=== PATIENT | female | born 1965 | race Caucasian/White ===

== ENCOUNTER 2016-08-03 00:09 | Emergency (ER) | payer MEDICAID ==
[~2016-08-03] VITALS: Ht 170.2 cm; Wt 90.7 kg
[~2016-08-03 00:09] MED LIST: CLON0.5T4 PO; LEVO50TA8 PO; LOVOXYL; [UNRECOGNIZED DRUG - OTHER]; celexa; dyazide; lithium; lopid; lovaza; remeron; tegretol; vicodin
--- NOTE | 2016-08-03 00:11 | NUR ---
Patient to ER bed 06 to gown for evaluation. Side rails up. Report given to ART.
[2016-08-03 00:15] VITALS: BP 125/70; PULSE 90; RESP 16; TEMP 98.4; O2SAT 95
--- NOTE | 2016-08-03 00:20 | NUR ---
PT IN BED 6 WITH C/O LEFT FOOT SWELLING , BODY ACHES ,HEARING LOSS,DIZZINESS, X [address] RAPHAEL AWARE.
--- NOTE | 2016-08-03 00:22 | NUR ---
ER at bedside examining patient.
--- NOTE | 2016-08-03 00:40 | NUR ---
Urine specimen collected and sent to Lab. Results to be given to MICAH DIAZ.
[2016-08-03 01:16] LABS: BILIRUBIN,URINE NEGATIVE (NEGATIVE); BLOOD, URINE NEGATIVE (NEGATIVE); CLARITY/URINE CLEAR (CLEAR); COLOR,URINE YELLOW (YELLOW); GLUCOSE,URINE NEGATIVE (NEGATIVE); KETONES,URINE TRACE (NEGATIVE); LEUKOCYTE ESTERASE ,URINE NEGATIVE (NEGATIVE); NITRITE, URINE NEGATIVE (NEGATIVE); PH,URINE 6.5 (5.0-8.0); PROTEIN URINE NEGATIVE (NEGATIVE); UROBILINOGEN,URINE 0.2 (0.2-1.0)
[2016-08-03 01:25] LABS: BASOPHILS # (AUTO) 0.1 K/uL (0.0-0.2); BASOPHILS % (AUTO) 0.8 % (0.0-2.0); EOSINOPHILS # (AUTO) 0.2 K/uL (0.0-0.4); EOSINOPHILS % (AUTO) 3.1 % (0.0-4.0); HEMATOCRIT 44.1 % (36-48); HEMOGLOBIN 14.9 g/dL (12.0-16.0); LYMPHOCYTES # (AUTO) 2.7 K/uL (1.0-5.5); LYMPHOCYTES % (AUTO) 36.6 % (20.5-51.5); MEAN CORPUSCULAR HEMOGLOBIN 33 pg (27-31); MEAN CORPUSCULAR HGB CONC 34 % (32-36); MEAN CORPUSCULAR VOLUME 97 fL (79.0-98.0); MONOCYTES # (AUTO) 0.4 K/uL (0.0-1.0); MONOCYTES % (AUTO) 5.4 % (1.7-9.3); NEUTROPHILS # (AUTO) 4.1 K/uL (1.8-7.7); NEUTROPHILS % (AUTO) 54.1 % (40.0-70.0); PLATELET COUNT (AUTO) 254 K/uL (130-430); RED BLOOD CELL COUNT(AUTO) 4.55 MIL/uL (4.2-6.2); RED CELL DISTRIBUTION WIDTH 12.6 % (9.0-15.0); WHITE BLOOD COUNT (AUTO) 7.5 K/uL (4.8-10.8)
--- NOTE | 2016-08-03 01:30 | NUR ---
Patient resting quietly. No acute distress noted. Vital signs within normal range.
[2016-08-03 01:55] LABS: ALBUMIN 3.5 g/dL (3.4-4.8); CALCIUM 8.9 mg/dL (8.4-11.0); CREATININE 1.13 mg/dL (0.55-1.30); POTASSIUM 3.8 mmol/L (3.5-5.1); TOTAL BILIRUBIN 0.3 mg/dL (0.0-1.0); TOTAL PROTEIN, SERUM 7.6 g/dL (6.4-8.3)
[2016-08-03 02:00] LABS: THYROID STIMULATING HORMONE 2.19 uIu/mL (0.34-4.82)
[2016-08-03 02:25] VITALS: BP 132/78; PULSE 86; RESP 16; TEMP 98.4; O2SAT 95
--- NOTE | 2016-08-03 02:25 | NUR ---
Patient given written and verbal discharge instructions and verbalizes understanding. ER MD discussed with patient the results and treatment provided. Given copies of tests performed in ER. Patient in stable condition. ID arm band removed. Rx of bactrim,cephalexin given. Patient educated on pain management and to follow up with PMD. Pain Scale 0/10. Opportunity for questions provided and answered.
== END 2016-08-03 02:25 | disposition home or self-care (01) ==
LOC: SED 00:09
DX: L03.116 Cellulitis of left lower limb (principal); E11.9 Type 2 diabetes mellitus without complications; F41.9 Anxiety disorder, unspecified; R03.0 Elevated blood-pressure reading, without diagnosis of hypertension; E05.90 Thyrotoxicosis, unspecified without thyrotoxic crisis or storm; F17.200 Nicotine dependence, unspecified, uncomplicated
CPT/HCPCS: 36415; 80053; 81003; 83880; 84443-TC; 85025; 85379; 99284

== ENCOUNTER 2018-09-26 01:20 | Emergency (ER) | payer MEDICAID ==
[~2018-09-26] VITALS: Ht 170.2 cm; Wt 108.9 kg
[~2018-09-26 01:20] MED LIST changes: +CLON0.5T12 PO; -CLON0.5T4 PO; -LOVOXYL; -[UNRECOGNIZED DRUG - OTHER]; -celexa; -dyazide; -lithium; -lopid; -lovaza; -remeron; -tegretol; -vicodin
[2018-09-26 01:25] VITALS: BP_SYST 103
== END 2018-09-26 01:45 | disposition left against medical advice (07) ==
LOC: SED 01:20
DX: J02.9 Acute pharyngitis, unspecified (principal); R05 Cough; Z53.21 Procedure and treatment not carried out due to patient leaving prior to being seen by health care provider

== ENCOUNTER 2018-11-11 09:45 | Emergency (ER) | payer MEDICAID ==
[~2018-11-11] VITALS: Ht 170.2 cm; Wt 104.3 kg
--- NOTE | 2018-11-11 09:50 | NUR ---
Patient to ER bed 7 to gown for evaluation. Side rails up. Report given to Willow VELEZ.
--- NOTE | 2018-11-11 09:50 | NUR ---
Patient presented to ER with left side rib pain. Patient A&Ox4, abulatory, respirations equal bilat, afebrile, pain 02/03 denies N/V/D. Patient states pain to left side ribs started two days ago, denies trauma/injury. PAtient states pain increased today 02/03 promting ER visit. Patient states she has a history of rectal bleeding, hepatitis, thyroid problem, she states she takes thyroid medication daily.
--- NOTE | 2018-11-11 09:50 | NUR ---
Note rene in ED - 11/11/18 at 1108 by SDEDTD Patient to ER bed [] to minal for evaluation. Side rails up. Report given to [].
--- NOTE | 2018-11-11 09:51 | NUR ---
ER Dr. Hanna at bedside examining patient.
[2018-11-11 10:02] VITALS: BP_SYST 140
[2018-11-11 10:43] LABS: BASOPHILS # (AUTO) 0.1 K/uL (0.0-0.2); BASOPHILS % (AUTO) 1.3 % (0.0-2.0); EOSINOPHILS # (AUTO) 0.2 K/uL (0.0-0.4); EOSINOPHILS % (AUTO) 3.7 % (0.0-4.0); LYMPHOCYTES # (AUTO) 2.2 K/uL (1.0-5.5); LYMPHOCYTES % (AUTO) 34.3 % (20.5-51.5); MEAN CORPUSCULAR HEMOGLOBIN 34 pg (27-31); MEAN CORPUSCULAR HGB CONC 34 % (32-36); MEAN CORPUSCULAR VOLUME 100 fL (79.0-98.0); MONOCYTES # (AUTO) 0.3 K/uL (0.0-1.0); MONOCYTES % (AUTO) 5.2 % (1.7-9.3); NEUTROPHILS # (AUTO) 3.6 K/uL (1.8-7.7); NEUTROPHILS % (AUTO) 55.5 % (40.0-70.0); PLATELET COUNT (AUTO) 249 K/uL (130-430); RED BLOOD CELL COUNT(AUTO) 4.71 MIL/uL (4.2-6.2); RED CELL DISTRIBUTION WIDTH 14.2 % (9.0-15.0); WHITE BLOOD COUNT (AUTO) 6.5 K/uL (4.8-10.8)
--- NOTE | 2018-11-11 10:50 | NUR ---
Beck lópez in ED - 11/11/18 at 1113 by SDEDTD Patient to ER bed 7 to minal for evaluation. Side rails up. Report given to Willow LITTLEJOHN
[2018-11-11 10:55] LABS: CALCIUM 9.3 mg/dL (8.4-11.0); CREATININE 1.05 mg/dL (0.55-1.30); POTASSIUM 4.3 mmol/L (3.5-5.1)
[2018-11-11 11:07] LABS: ALBUMIN 3.1 g/dL (3.4-4.8); TOTAL BILIRUBIN 0.3 mg/dL (0.0-1.0)
[2018-11-11 11:11] LABS: INR 0.9 (0.8-1.2); PROTHROMBIN TIME 9.6 SECS (9.5-12.5)
--- NOTE | 2018-11-11 11:52 | NUR ---
Patient requested to "step outside for a cigarette" . I requsted she not leave the ER, she was agreeable. I made Dr. Hanna aware.
[2018-11-11] MEDS ORDERED: KETOROLAC TROMETHAMINE 30 MG VIAL IM ONE (12:00)
[2018-11-11 12:15] VITALS: BP_SYST 140
--- NOTE | 2018-11-11 12:15 | NUR ---
Patient given written and verbal discharge instructions and verbalizes understanding. ER MD discussed with patient the results and treatment provided. Patient in stable condition. ID arm band removed. Rx of Ibuprofen & oxycodone hydrochloride given. Patient educated on pain management and to follow up with PMD. Pain Scale 7/10 tolerable for patient. Opportunity for questions provided and answered. Medication side effect fact sheet provided.
== END 2018-11-11 12:15 | disposition home or self-care (01) ==
LOC: SED 09:45
DX: R07.89 Other chest pain (principal); E03.9 Hypothyroidism, unspecified; F41.9 Anxiety disorder, unspecified; Z79.899 Other long term (current) drug therapy
CPT/HCPCS: 36415; 71250; 80053; 81025; 85025; 84703; 85610; 85730; 96372; 99284; J1885

== ENCOUNTER 2019-01-02 00:35 | Emergency (ER) | payer MEDICAID ==
[~2019-01-02] VITALS: Ht 167.6 cm; Wt 103.4 kg
[2019-01-02 00:35] VITALS: BP_SYST 129
--- NOTE | 2019-01-02 00:43 | NUR ---
Patient to ER bed 7 to gown for evaluation. Side rails up. Report given to SUNDAY VELEZ/YON VELEZ.
--- NOTE | 2019-01-02 00:50 | NUR ---
Pt came into ED due to tooth ache that she's had for 2 days. Pt's left cheek started swelling yesterday and radiates to the left ear and under the left eye. Patient reports pain /10. Pt has hx of hep C and hypothyroidism. Pt denies SOB. Pt denies N/V/D. Pt is A&Ox4. Will continue to monitor.
--- NOTE | 2019-01-02 00:55 | NUR ---
ER Dr. Lemus at bedside examining patient.
[2019-01-02] MEDS ORDERED: CLINDAMYCIN 600 MG in D5W 50 ML IV ONE (01:00)
[2019-01-02] MEDS ORDERED: cefTRIAXone 1 GM in D5W 50 ML IV ONE (01:00)
[2019-01-02] MEDS ORDERED: DEXAMETHASONE SOD PHOSPHATE 10 MG/ML VIAL IVP ONE (01:00)
[2019-01-02] MEDS ORDERED: KETOROLAC TROMETHAMINE 30 MG VIAL IVP ONE (01:00)
[2019-01-02] MEDS ORDERED: cefTRIAXone 1 GM VIAL ONE (01:26)
[2019-01-02] MEDS ORDERED: CLINDAMYCIN 600 mg/50mL D5W 50 ML IV ONE (01:27)
--- NOTE | 2019-01-02 01:30 | NUR ---
Patient is recieving IV antibiotics. Laying comfortably in bed. Friend at bedside.
--- NOTE | 2019-01-02 02:00 | NUR ---
IV Rocephin started infusing @ 0125 and completed infusion @ 0200
[2019-01-02 02:40] VITALS: BP_SYST 125
--- NOTE | 2019-01-02 02:40 | NUR ---
Patient given written and verbal discharge instructions and verbalizes understanding. ER MD discussed with patient the results and treatment provided. Patient in stable condition. ID arm band removed. IV catheter removed intact and dressing applied, no active bleeding. Rx of clindamycin, amoxicillin, tramadol given. Patient educated on pain management and to follow up with PMD. Pain Scale 4/10. Opportunity for questions provided and answered. Medication side effect fact sheet provided.
== END 2019-01-02 02:40 | disposition home or self-care (01) ==
LOC: SED 00:35
DX: K04.7 Periapical abscess without sinus (principal); F41.9 Anxiety disorder, unspecified; F17.200 Nicotine dependence, unspecified, uncomplicated
CPT/HCPCS: 96365; 96367; 96375; 99283; J0696; J1100; J1885; J3490

== ENCOUNTER 2019-07-29 19:16 | Emergency (ER) | payer MEDICAID ==
[~2019-07-29] VITALS: Ht 170.2 cm; Wt 106.6 kg
[2019-07-29 19:20] VITALS: BP_SYST 152
--- NOTE | 2019-07-29 20:17 | NUR ---
Placed in room 2 . Placed on groundwater monitoring technician, blood pressure machine and pulse oximeter. To gown for exam. Side rails up. Report given to TINA VELEZ.
--- NOTE | 2019-07-29 20:29 | NUR ---
Pt presents to ER with c/o bilateral leg swelling. Pt A&Ox4. Pt states she has had swelling of bilateral legs "for awhile." Pt states redness began yesterday. Pt states legs are sore when touched but no pain when not touched. Pt states no history of DVT. Upon assessment, pt has has 2+ edema on bilateral legs with redness noted. Pt bilateral legs also have dryness of skin noted. Will continue to monitor.
--- NOTE | 2019-07-29 21:29 | NUR ---
Note rene in EDM - 07/29/19 at 2212 by PAULY Pt presents to ER with c/o bilateral leg swelling. Pt A&Ox4. Pt states she has had swelling of bilateral legs "for awhile." Pt states redness began yesterday. Pt states legs are sore when touched but no pain when not touched. Pt states no history of DVT. Upon assessment, pt has has 2+ edema on bilateral legs with redness noted. Pt bilateral legs also have dryness of skin noted. Will continue to monitor.
--- NOTE | 2019-07-29 21:59 | NUR ---
ER Dr. Swartz at bedside examining patient.
[2019-07-29] MEDS ORDERED: AMPICILLIN SODIUM/SULBACTAM NA 3 GM in NS 100 ML IV ONE (22:15)
[2019-07-29 22:27] LABS: BILIRUBIN,URINE NEGATIVE (NEGATIVE); COLOR,URINE YELLOW (YELLOW); GLUCOSE,URINE NEGATIVE (NEGATIVE); KETONES,URINE NEGATIVE (NEGATIVE); LEUKOCYTE ESTERASE ,URINE NEGATIVE (NEGATIVE); NITRITE, URINE NEGATIVE (NEGATIVE); PROTEIN URINE NEGATIVE (NEGATIVE); UROBILINOGEN,URINE 0.2 (0.2-1.0)
[2019-07-29 22:29] LABS: BLOOD, URINE TRACE (NEGATIVE); CLARITY/URINE SLIGHTLY HAZY (CLEAR)
[2019-07-29 22:39] LABS: RBC,URINE 0-3 /HPF (0-3)
[2019-07-29 22:40] LABS: BACTERIA,URINE FEW /HPF (None Seen)
--- NOTE | 2019-07-29 22:40 | NUR ---
# 20 gauge angiocath placed to R AC. Use of asceptic technique. Opsite placed over site. Blood return noted. Blood for lab drawn from site. Flushed with 10 cc of normal saline. No evidence of infiltration noted. Patient tolerated well.
--- NOTE | 2019-07-29 22:50 | NUR ---
Pt medicated per MD orders. Pt tolerated well. Will continue to monitor.
[2019-07-29 22:54] LABS: BASOPHILS # (AUTO) 0.1 K/uL (0.0-0.2); BASOPHILS % (AUTO) 1.3 % (0.0-2.0); EOSINOPHILS # (AUTO) 0.3 K/uL (0.0-0.4); EOSINOPHILS % (AUTO) 3.9 % (0.0-4.0); HEMATOCRIT 45.7 % (36-48); HEMOGLOBIN 15.8 g/dL (12.0-16.0); LYMPHOCYTES # (AUTO) 2.6 K/uL (1.0-5.5); LYMPHOCYTES % (AUTO) 34.2 % (20.5-51.5); MEAN CORPUSCULAR HEMOGLOBIN 37 pg (27-31); MEAN CORPUSCULAR HGB CONC 35 % (32-36); MEAN CORPUSCULAR VOLUME 107 fL (79.0-98.0); MONOCYTES # (AUTO) 0.4 K/uL (0.0-1.0); MONOCYTES % (AUTO) 5.7 % (1.7-9.3); NEUTROPHILS # (AUTO) 4.1 K/uL (1.8-7.7); NEUTROPHILS % (AUTO) 54.9 % (40.0-70.0); PLATELET COUNT (AUTO) 219 K/uL (130-430); RED BLOOD CELL COUNT(AUTO) 4.29 MIL/uL (4.2-6.2); RED CELL DISTRIBUTION WIDTH 15.2 % (9.0-15.0); WHITE BLOOD COUNT (AUTO) 7.6 K/uL (4.8-10.8)
[2019-07-29] MEDS ORDERED: AMPICILLIN SODIUM/SULBACTAM NA 3 GM VIAL ONE (22:58)
[2019-07-29 23:06] LABS: CALCIUM 9.5 mg/dL (8.4-11.0); CREATININE 1.27 mg/dL (0.55-1.30); POTASSIUM 4.1 mmol/L (3.5-5.1)
[2019-07-29 23:11] LABS: TOTAL BILIRUBIN 0.8 mg/dL (0.0-1.0)
--- NOTE | 2019-07-29 23:30 | NUR ---
RN started Unasyn IVPB @ 2710, completed infusion @ 4794
[2019-07-30 00:10] VITALS: BP_SYST 146
--- NOTE | 2019-07-30 00:20 | NUR ---
Patient given written and verbal discharge instructions and verbalizes understanding. ER MD Swartz discussed with patient the results and treatment provided. Patient in stable condition. ID arm band removed. IV catheter removed intact and dressing applied, no active bleeding. Rx of keflex given. Patient educated on pain management and to follow up with PMD. Pain Scale 0/10. Opportunity for questions provided and answered. Medication side effect fact sheet provided.
== END 2019-07-30 00:10 | disposition home or self-care (01) ==
LOC: SED 19:16
DX: L03.116 Cellulitis of left lower limb (principal); L03.115 Cellulitis of right lower limb; F41.9 Anxiety disorder, unspecified; E03.9 Hypothyroidism, unspecified; F17.200 Nicotine dependence, unspecified, uncomplicated; Z86.19 Personal history of other infectious and parasitic diseases; Z71.6 Tobacco abuse counseling
CPT/HCPCS: 36415; 80053; 81000; 85025; 87040; 87086; 96365; 99283; J0295

== ENCOUNTER 2019-08-19 00:54 | Emergency (ER) | payer MEDICAID ==
[~2019-08-19] VITALS: Ht 170.2 cm; Wt 63.5 kg
[2019-08-19 01:00] VITALS: BP_SYST 127
--- NOTE | 2019-08-19 01:00 | NUR ---
Patient triaged and placed in waiting room. VSS and patient appears in no acute distress at this time. Accompanied by SELF, awaiting available bed, and MD notified of need for MSE.
--- NOTE | 2019-08-19 02:00 | NUR ---
call pt name in the wr.No response
--- NOTE | 2019-08-19 02:05 | NUR ---
call pt name in the wr.No response
--- NOTE | 2019-08-19 02:10 | NUR ---
call pt name in the wr.No response
== END 2019-08-19 02:10 | disposition left against medical advice (07) ==
LOC: SED 00:54
DX: L03.115 Cellulitis of right lower limb (principal); L03.116 Cellulitis of left lower limb; Z53.21 Procedure and treatment not carried out due to patient leaving prior to being seen by health care provider

== ENCOUNTER 2019-08-21 12:04 | Inpatient (IN) | payer MEDICAID ==
[~2019-08-21] VITALS: Ht 170.2 cm; Wt 105.7 kg
[2019-08-21 12:17] VITALS: BP_SYST 121
--- NOTE | 2019-08-21 12:20 | NUR ---
Patient triaged and placed in waiting room. VSS and patient appears in no acute distress at this time. Awaiting available bed, and MD notified of need for MSE.
--- NOTE | 2019-08-21 12:25 | NUR ---
Patient arrived in the ED c/o redness, swelling and pain on BLE that started 3 days ago - patient was treated for it but no relief. Patient denied any chest pain or shortness of breath. Denied any fevers, chills, nausea, or vomiting. Patient is alert and oriented x4, respirations even and unlabored, speaking in full sentences, ambulating with a steady gait. VSS, pain level 8/10. Informed of approximate wait time. Instructed to notify ED staff for any changes in condition or worsening of symptoms. Patient verbalized understanding.
--- NOTE | 2019-08-21 13:55 | NUR ---
ER Dr. Webb at bedside examining patient.
[2019-08-21] MEDS ORDERED: VANCOMYCIN HCL 1,000 MG in D5W 250 ML IV ONE (14:00)
[2019-08-21] MEDS ORDERED: ONDANSETRON HCL 4 MG/2 ML VIAL IVP ONE ×2 (14:00→16:45)
[2019-08-21] MEDS ORDERED: PIPERACILLIN/TAZO 3.38 GM in D5W 50 ML IV ONE (14:00)
[2019-08-21] MEDS ORDERED: MORPHINE 4 MG/ML INJ. SYRINGE IVP ONE ×2 (14:00→16:45)
--- NOTE | 2019-08-21 14:20 | NUR ---
Administered Morphine, Zofran, Zosyn and Vancomycin as ordered by Dr. Webb. Patient tolerated the medication well. See eMAR for details.
--- NOTE | 2019-08-21 14:20 | NUR ---
X-ray tech at bedside as ordered by Dr. Webb. Patient tolerated the procedure well.
--- NOTE | 2019-08-21 14:32 | NUR ---
certified hyperbaric technician at bedside as ordered by Dr. Webb collecting blood specimen. Patient tolerated the procedure well.
--- NOTE | 2019-08-21 14:34 | NUR ---
US tech at bedside as ordered by Dr. Webb. Patient tolerated the procedure well.
[2019-08-21] MEDS ORDERED: VANCOMYCIN HCL 1000 MG/VIAL IV ONE (14:54)
[2019-08-21] MEDS ORDERED: PIPERACILLIN/TAZOBACTAM 3.375 GM/VIAL (ZOSYN) IV ONE (14:54)
[2019-08-21 14:55] LABS: BASOPHILS # (AUTO) 0.1 K/uL (0.0-0.2); BASOPHILS % (AUTO) 1.4 % (0.0-2.0); EOSINOPHILS # (AUTO) 0.2 K/uL (0.0-0.4); EOSINOPHILS % (AUTO) 3.1 % (0.0-4.0); HEMATOCRIT 43.3 % (36-48); HEMOGLOBIN 14.5 g/dL (12.0-16.0); LYMPHOCYTES # (AUTO) 2.2 K/uL (1.0-5.5); LYMPHOCYTES % (AUTO) 30.7 % (20.5-51.5); MEAN CORPUSCULAR HEMOGLOBIN 36 pg (27-31); MEAN CORPUSCULAR HGB CONC 34 % (32-36); MEAN CORPUSCULAR VOLUME 107 fL (79.0-98.0); MONOCYTES # (AUTO) 0.4 K/uL (0.0-1.0); MONOCYTES % (AUTO) 6.2 % (1.7-9.3); NEUTROPHILS # (AUTO) 4.2 K/uL (1.8-7.7); NEUTROPHILS % (AUTO) 58.6 % (40.0-70.0); PLATELET COUNT (AUTO) 221 K/uL (130-430); RED BLOOD CELL COUNT(AUTO) 4.03 MIL/uL (4.2-6.2); RED CELL DISTRIBUTION WIDTH 14.1 % (9.0-15.0); WHITE BLOOD COUNT (AUTO) 7.2 K/uL (4.8-10.8)
[2019-08-21] MEDS ORDERED: ONDANSETRON HCL 4 MG/5 ML UDC PO ONE (14:55)
[2019-08-21] MEDS ORDERED: ONDANSETRON HCL 4 MG/2 ML VIAL ONE (14:56)
[2019-08-21 15:02] LABS: CALCIUM 8.6 mg/dL (8.4-11.0); CREATININE 1.09 mg/dL (0.55-1.30)
[2019-08-21 15:07] LABS: INR 0.9 (0.8-1.2); PROTHROMBIN TIME 9.5 SECS (9.5-12.5)
[2019-08-21 15:09] LABS: ALBUMIN 3.1 g/dL (3.4-4.8); TOTAL BILIRUBIN 0.3 mg/dL (0.0-1.0)
[2019-08-21] MEDS ORDERED: NACL 0.9% 2,500 ML IV ONE (15:30)
--- NOTE | 2019-08-21 18:00 | NUR ---
Patient is resting comfortably in bed, respirations even and unlabored, speaking in full sentences.
--- NOTE | 2019-08-21 19:17 | NUR ---
Report given and care transferred to ROSIE Villagran.
--- NOTE | 2019-08-21 19:18 | NUR ---
Assumed care of patient. Patient sleeping at this time. No acute respiratory distress noted.
--- NOTE | 2019-08-21 19:45 | NUR ---
End of life care decisions discussed with patient by Dr. Webb. Opportunity for questions and concerns addressed. Patient's code status is FULL CODE, paperwork completed and placed in chart.
--- NOTE | 2019-08-21 21:04 | NUR ---
Patient will be admitted to care of Dr. Chacon. Admitted to MED SURG unit. Will go to room 117B. Complete and up to date summary report printed. SBAR report to be given at bedside with opportunity for questions.
--- NOTE | 2019-08-21 21:32 | NUR ---
ADMISSION NOTE Received patient from ER via magaly, received report from BATTERY CONTAINER INSPECTOR. Patient admitted with diagnosis of cellulitis. Patient oriented to hospital routine, call light, toileting and safety-patient verbalized understanding.
[2019-08-21 21:33] VITALS: BP_SYST 123
--- NOTE | 2019-08-21 21:45 | NUR ---
Opening notes Patient resting in bed, no signs of distress noted. Breathing even and unlabored. Patient complains of pain to bilateral legs, but mainly left leg. will page MD for orders. IV patent and intact, no signs of infiltration noted. Oriented patient to room and call light. Patient verbalized understanding. call light with the patient. Safety precautions in place.
[2019-08-21] MEDS ORDERED: ONDANSETRON HCL 4 MG/2 ML VIAL IVP PRN (22:30)
[2019-08-21] MEDS: MORPHINE 4 MG/ML INJ. SYRINGE IVP PRN (22:49)
--- NOTE | 2019-08-21 23:00 | NUR ---
Pain Spoke to Dr. Chacon and informed about patient's pain. New orders received. PRN pain medication given to patient. Educated the action and side and fall precautions. Patient verbalized understanding and tolerated well. No other needs at this time. Call light with the patient. Safety precautions in place.
--- NOTE | 2019-08-22 00:30 | NUR ---
Sleeping Patient is sleeping. No signs of distress noted. Breathing even and unlabored. No needs at this time. Call light with the patient. Safety precautions in place.
[2019-08-22] MEDS ORDERED: VANCOMYCIN HCL 1000 MG/VIAL IV ONE (00:34)
[2019-08-22] MEDS: VANCOMYCIN HCL 1 GM/NS PREMIX 250 ML IV SCH ×2 (02:36→14:09)
[2019-08-22] MEDS: MORPHINE 2 MG/ML INJ. SYRINGE IVP PRN ×2 (02:47→23:29)
--- NOTE | 2019-08-22 02:50 | NUR ---
Pain Patient IV infiltrated. IV catheter tip intact and discarded. New IV inserted to right forearm 22 gauge. Patient complains of pain to left leg. PRN pain medication given. Patient tolerated well. IV ABX given. Educated the action and side effects of medications. Patient verbalized understanding and tolerated well. Call light with the patient. Safety precautions in place.
--- NOTE | 2019-08-22 04:22 | NUR ---
Sleeping No signs of distress noted. Breathing even and unlabored. IV patent and intact, infusing ABX. No needs. Call light with the patient. Safety precautions in place.
--- NOTE | 2019-08-22 06:52 | NUR ---
Closing notes Patient is sleeping at this time. No signs of distress noted. Breathing even and unlabored. Patient complains of some pain, but tolerable at this time. IV patent and intact, no signs of infiltration noted. All needs met throughout the shift. Call light with the patient. Safety precautions in place. Will endorse care to day shift RN.
--- NOTE | 2019-08-22 07:35 | NUR ---
INITIAL NOTE PT AWAKE, PAIN CONTROLLED AT THIS TIME. IV SALINE LOCKED. PT AMBULATED TO RESTROOM WITH STEADY GAIT. EDUCATED PT ON SAFETY AND USE OF BED ALARM AND HOSPITAL SOCKS. PT VERBALIZED UNDERSTANDING. PT REFUSING BED ALARM AND SOCKS AT THIS TIME. BED IN LOW AND LOCKED POSITION.
[2019-08-22 08:00] VITALS: BP_SYST 101
[2019-08-22] MEDS: MORPHINE 4 MG/ML INJ. SYRINGE IVP PRN ×2 (08:01→16:19)
--- NOTE | 2019-08-22 08:08 | NUR ---
PAIN MEDICATION PT COMPLAINING OF LOWER EXTREMITY PAIN, 01/03. EDUCATED PT ON USES AND SIDE EFFECTS OF MORPHINE. PT VERBALIZED UNDERSTANDING. PRN MORPHINE ADMINISTERED. WILL CONTINUE TO MONITOR.
--- NOTE | 2019-08-22 10:00 | NUR ---
RN ROUNDS PT RESTING QUIETLY, NO ACUTE DISTRESS NOTED, BREATHING EVEN AND UNLABORED. WILL CONTINUE TO MONITOR.
[2019-08-22 11:19] VITALS: BP_SYST 95
--- NOTE | 2019-08-22 12:00 | NUR ---
RN ROUNDS NO CHANGE IN ASSESSMENT, PT RESTING QUIETLY, NO ACUTE DISTRESS NOTED, WILL CONTINUE TO MONITOR.
--- NOTE | 2019-08-22 14:00 | NUR ---
LOW OXYGEN PT COMPLAINING OF WAKING UP CHOKING. O2 SAT 85-88%. RAISED HOB. PLACED PT ON 2L NC. O2 SAT WENT UP TO 90%. PT DISCLOSED SHE IS A CHRONIC SMOKER. WILL CONTINUE TO MONITOR.
[2019-08-22 15:35] VITALS: BP_SYST 97
--- NOTE | 2019-08-22 16:15 | NUR ---
PAGED PAGED JADE DYE AT [phone] SPOKE WITH TATIANA.
--- NOTE | 2019-08-22 16:24 | NUR ---
PAIN MEDICATION PT COMPLAINING OF 10/1O, LOWER LEFT LEG PAIN. EDUCATED PT ON USES AND SIDE EFFECTS OF MORPHINE.PT VERBALIZED UNDERSTANDING. ELEVATED LEFT LEG. WILL CONTINUE TO MONITOR.
--- NOTE | 2019-08-22 18:28 | NUR ---
CLOSING NOTE PT RESTING IN BED, NO ACUTE DISTRESS NOTED, BREATHING EVEN AND UNLABORED. PT ON 2L NC, TOLERATING WELL. IV SALINE LOCKED. CALL LIGHT WITHIN REACH, BED IN LOW AND LOCKED POSITION. EDUCATED PT ON SAFETY AND USE OF CALL LIGHT. PT VERBALIZED UNDERSTANDING, PT REFUSING CALL LIGHT AT THIS TIME. LEFT LEG ELEVATED. ALL NEEDS MET THROUGHOUT SHIFT. WILL CONTINUE TO MONITOR UNTIL PT CARE IS ENDORSED TO ASSISTANT SCIENTIST RN.
[2019-08-22 19:50] VITALS: BP_SYST 104
--- NOTE | 2019-08-22 19:50 | NUR ---
INITIAL NOTES PATIENT IS LAYING IN BED AND STABLE. NO S/S OF RESPIRATORY DISTRESS NOTED. PATIENT SUCCESSFULLY DEMONSTRATES USAGE OF CALL LIGHT AT THIS TIME. BED IS LOCKED AND AT THE LOWEST POSITION. FALL, SAFETY, ASPIRATION, AND RESPIRATORY PRECAUTIONS WILL BE IN PLACE THROUGHOUT THE SHIFT. PLAN OF CARE IS DISCUSSED WITH PATIENT. PATIENT VERBALIZE NO PAIN AT THIS MOMENT.
--- NOTE | 2019-08-22 21:50 | NUR ---
PATIENT AMBULATED TO THE RESTROOM AT THIS TIME. PATIENT TOLERATED WELL. NO S/S OF RESPIRATORY DISTRESS NOTED. CALL LIGHT IN REACH. BED IS LOCKED AND AT THE LOWEST POSITION.
--- NOTE | 2019-08-22 23:29 | NUR ---
PAIN MEDICATION GIVEN AT THIS TIME. PATIENT TOLERATED WELL. NO S/S OF RESPIRATORY DISTRESS NOTED. CALL LIGHT IN REACH. BED IS LOCKED, AND AT THE LOWEST POSITION.
[2019-08-23 00:03] VITALS: BP_SYST 112
--- NOTE | 2019-08-23 01:29 | NUR ---
PATIENT IS RESTING IN BED AND STABLE. NO S/S OF RESPIRATORY DISTRESS NOTED. CALL LIGHT IN REACH. BED IS LOCKED, AND AT THE LOWEST POSITION.
[2019-08-23] MEDS: VANCOMYCIN HCL 1 GM/NS PREMIX 250 ML IV SCH ×2 (01:40→13:40)
--- NOTE | 2019-08-23 03:29 | NUR ---
PATIENT IS SLEEPING IN BED AND STABLE. NO S/S OF RESPIRATORY DISTRESS NOTED. CALL LIGHT IN REACH. BED IS LOCKED, AND AT THE LOWEST POSITION.
--- NOTE | 2019-08-23 04:22 | NUR ---
PATIENT IS SLEEPING IN BED AND STABLE. NO S/S OF RESPIRATORY DISTRESS NOTED. CALL LIGHT IN REACH. BED IS LOCKED AND AT THE LOWEST POSITION.
[2019-08-23] MEDS: MORPHINE 2 MG/ML INJ. SYRINGE IVP PRN ×2 (04:53→13:40)
--- NOTE | 2019-08-23 06:43 | NUR ---
CLOSING NOTES PATIENT IS STABLE AND LAYING IN BED. NO S/S OF RESPIRATORY DISTRESS NOTED. CALL LIGHT IN REACH. BED IS LOCKED, AND AT THE LOWEST POSITION. FALL, SAFETY, ASPIRATION, AND RESPIRATORY PRECAUTIONS HAS BEEN IN PLACE THROUGHOUT THE SHIFT. WILL CONTINUE TO MONITOR UNTIL REPORT IS GIVEN TO AM NURSE BY BEDSIDE.
--- NOTE | 2019-08-23 07:20 | NUR ---
INITIAL NOTE PT RESTING QUIETLY IN BED, ON ROOM AIR, BREATHING EVEN AND UNLABORED. IV SALINE LOCKED. PT EDUCATED ON SAFETY AND USE OF BED ALARM, PT VERBALIZED UNDERSTANDING, PT REFUSING BED ALARM. CALL LIGHT WITHIN REACH, BED IN LOW AND LOCKED POSITION WITH BED ALARM ON.
[2019-08-23 08:00] VITALS: BP_SYST 116
--- NOTE | 2019-08-23 09:30 | NUR ---
DR. WREN/RN ROUNDS MD AT BEDSIDE EXAMINING PT. INFORMED MD THAT DR. METZGER SAW THE PT AND IS RECOMMENDING 7-10 MORE DAYS OF IV ANTIBIOTICS. INFORMED MD THAT PT WOULD LIKE TO TRY [place] INSTEAD OF THE MORPHINE. MD TO LOOK AT PT CHART. PT REMAINS ON 2L NC, TOLERATING WELL.
--- NOTE | 2019-08-23 11:30 | NUR ---
SMOKING WAIVER EDUCATED PT ON SMOKING CESSATION. PT VERBALIZED UNDERSTANDING. PT SIGNED HOSPITAL SMOKING WAIVER. EDUCATED PT ON SAFETY AND USE OF WHEELCHAIR ACCESS. PT VERBALIZED UNDERSTANDING. PT REFUSING WHEELCHAIR. PT AMBULATES WITH STEADY GAIT. DENIES ANY PAIN OR DISCOMFORT AT THIS TIME.
[2019-08-23 12:00] VITALS: BP_SYST 119
--- NOTE | 2019-08-23 13:48 | NUR ---
PAIN MEDICATIONS PT COMPLAINING OF PAIN IN LEFT LOWER EXTREMITY. EDUCATED PT ON USES AND SIDE EFFECTS OF MORPHINE. PT VERBALIZED UNDERSTANDING. PRN MORPHINE ADMINISTERED. PT ON 2L NC, TOLERATING WELL. WILL CONTINUE TO MONITOR.
--- NOTE | 2019-08-23 15:48 | NUR ---
RN ROUNDS PT RESTING QUIETLY, PT REMAINS ON 2L NC TOLERATING WELL. PAIN CONTROLLED AT THIS TIME.
[2019-08-23 16:00] VITALS: BP_SYST 110
[2019-08-23] MEDS: MORPHINE 4 MG/ML INJ. SYRINGE IVP PRN (16:36)
--- NOTE | 2019-08-23 18:27 | NUR ---
CLOSING NOTE PT RESTING QUIETLY IN BED, ON 2L NC, BREATHING EVEN AND UNLABORED. IV ANTIBIOTICS INFUSING WELL. PT EDUCATED ON SAFETY AND USE OF BED ALARM, PT VERBALIZED UNDERSTANDING, PT REFUSING BED ALARM. CALL LIGHT WITHIN REACH, BED IN LOW AND LOCKED POSITION. ALL NEEDS MET THROUGHOUT SHIFT. WILL CONTINUE TO MONITOR UNTIL PT CARE IS ENDORSED TO AUTOMOTIVE REFINISH TECHNICIAN RN.
--- NOTE | 2019-08-23 19:15 | NUR ---
OPENING NOTES Late entry due to patient care. Bedside report received from dayshift nurse. Patient received lying in bed, resting, no s/s of acute distress noted. Breathing is even and unlabored. IV site shows no signs of infiltration or infection. Call light with patient. Bed locked and at lowest position. Will continue to monitor.
[2019-08-23] MEDS: HYDROcodone/ACETAMIN 5-325 MG TAB (NORCO/ VICODIN) PO PRN (19:50)
--- NOTE | 2019-08-23 19:50 | NUR ---
PAIN Patient complained of pain, [place] administered. Will continue to monitor and reassess.
[2019-08-23 20:00] VITALS: BP_SYST 118
--- NOTE | 2019-08-23 23:00 | NUR ---
ROUNDS Patient just got back from the bathroom. Gait steady. No s/s of acute distress noted. Breathing is even and unlabored. Will continue to monitor. Call light with patient.
[2019-08-24] MEDS: MORPHINE 4 MG/ML INJ. SYRINGE IVP PRN (00:15)
[2019-08-24 00:42] VITALS: BP_SYST 111
--- NOTE | 2019-08-24 01:00 | NUR ---
ROUNDS Patient sleeping. No signs of discomfort noted. Chest rise and fall even bilaterally. Call light with patient. Will continue to monitor.
[2019-08-24] MEDS: VANCOMYCIN HCL 1 GM/NS PREMIX 250 ML IV SCH (02:38)
--- NOTE | 2019-08-24 03:00 | NUR ---
ROUNDS Patient sleeping comfortably. No s/s of acute distress. Breathing even and unlabored. IV antibiotics infusing well. IV site patent, no signs of infiltration or infection noted. Call light with patient. Will continue to monitor.
--- NOTE | 2019-08-24 05:00 | NUR ---
ROUNDS Patient in bed sleeping comfortably. NO signs of discomfort noted. Chest rise and fall even bilaterally. HOB raised. Call light with patient. Will continue to monitor.
--- NOTE | 2019-08-24 06:44 | NUR ---
CLOSING NOTES Patient in bed, sleeping. No s/s of acute distress noted. Breathing even and unlabored. IVF infusing well, IV site is patent, no signs of infiltration or infection noted. HOB raised. All needs met throughout shift. Fall and safety precautions maintained throughout shift. Will continue to monitor until patient care is endorsed to oncoming dayshift nurse.
[2019-08-24 08:00] VITALS: BP_SYST 129
[2019-08-24] MEDS: HYDROcodone/ACETAMIN 5-325 MG TAB (NORCO/ VICODIN) PO PRN (08:31)
--- NOTE | 2019-08-24 08:35 | NUR ---
PAIN MED GIVEN.
--- NOTE | 2019-08-24 10:00 | NUR ---
[place] IN BED RESTING
[2019-08-24] MEDS ORDERED: BACL20 PO (11:50)
[2019-08-24] MEDS ORDERED: BACTRIM DS PO (11:52)
[2019-08-24 11:57] VITALS: BP_SYST 120
--- NOTE | 2019-08-24 12:30 | NUR ---
D/C Patient Patient given medication reconciliation form and D/C instructions. Exit Care provided. Patient verbalized understanding. MD discussed with patient the results and treatment provided. Ambulatory with steady gait for discharge to home. Patient in stable condition, ID band removed. IV catheter removed, intact and dressing applied, no active bleeding. Rx of BACTRIM given. Patient educated on pain management. All belongings sent with patient.
== END 2019-08-24 12:30 | disposition home or self-care (01) | DRG 383 ==
LOC: SED 12:04 → SMU 21:04
PROVIDERS: ADMIT Internal Medicine Hospice and Palliative Medicine; ATTEND Internal Medicine Hospice and Palliative Medicine
DX: L03.116 Cellulitis of left lower limb (principal); E44.0 Moderate protein-calorie malnutrition; E87.2 Acidosis; A49.02 Methicillin resistant Staphylococcus aureus infection, unspecified site; L03.115 Cellulitis of right lower limb; B19.20 Unspecified viral hepatitis C without hepatic coma; E05.90 Thyrotoxicosis, unspecified without thyrotoxic crisis or storm; F41.9 Anxiety disorder, unspecified; Z79.899 Other long term (current) drug therapy
CPT/HCPCS: 36415; 71045; 80053; 80202-TC; 83605; 83880; 84484; 85025; 85610-TC; 85730-TC; 87040-TC; 93005; 93970; 96365; 96366; 96367; 96375; 99285; J2270; J2405; J2543; J3370; J7050; J7060; Q0162

== ENCOUNTER 2019-11-15 01:32 | Emergency (ER) | payer MEDICAID ==
[~2019-11-15] VITALS: Ht 170.2 cm; Wt 97.5 kg
[2019-11-15 01:32] VITALS: BP_SYST 135
[~2019-11-15 01:32] MED LIST changes: +BACTRIM DS PO; -CLON0.5T12 PO
--- NOTE | 2019-11-15 01:32 | NUR ---
Patient to ER bed 2 to gown for evaluation. Side rails up.
[2019-11-15] MEDS ORDERED: NITROGLYCERIN LINGUAL 400 mCg/SPRAY SL ONE (01:45)
--- NOTE | 2019-11-15 01:50 | NUR ---
ER at bedside examining patient.
--- NOTE | 2019-11-15 01:54 | NUR ---
pt in [place], A/O. C/O chest pain, with occational radiation to neck. 12/04 pain, Sinus Rhythym on monitor. No sob.
[2019-11-15] MEDS ORDERED: LEVO150T8 PO (01:55)
[2019-11-15] MEDS ORDERED: LevALBUTEROL HCL 1.25 MG/0.5 ML *CONC.* VIAL.NEB (XOPENEX CONC.) INH ONE (02:15)
[2019-11-15] MEDS ORDERED: NS 500 ML IV ONE (02:45)
[2019-11-15] MEDS ORDERED: PANTOPRAZOLE SODIUM 40 MG/VIAL (PROTONIX) IVP ONE (03:00)
[2019-11-15 03:13] LABS: BASOPHILS # (AUTO) 0.1 K/uL (0.0-0.2); BASOPHILS % (AUTO) 1.3 % (0.0-2.0); EOSINOPHILS # (AUTO) 0.2 K/uL (0.0-0.4); EOSINOPHILS % (AUTO) 1.9 % (0.0-4.0); HEMATOCRIT 47.8 % (36-48); HEMOGLOBIN 16.3 g/dL (12.0-16.0); LYMPHOCYTES # (AUTO) 3.3 K/uL (1.0-5.5); LYMPHOCYTES % (AUTO) 39.6 % (20.5-51.5); MEAN CORPUSCULAR HEMOGLOBIN 35 pg (27-31); MEAN CORPUSCULAR HGB CONC 34 % (32-36); MEAN CORPUSCULAR VOLUME 103 fL (79.0-98.0); MONOCYTES # (AUTO) 0.5 K/uL (0.0-1.0); MONOCYTES % (AUTO) 5.5 % (1.7-9.3); NEUTROPHILS # (AUTO) 4.3 K/uL (1.8-7.7); NEUTROPHILS % (AUTO) 51.7 % (40.0-70.0); PLATELET COUNT (AUTO) 195 K/uL (130-430); RED BLOOD CELL COUNT(AUTO) 4.64 MIL/uL (4.2-6.2); RED CELL DISTRIBUTION WIDTH 14.7 % (9.0-15.0); WHITE BLOOD COUNT (AUTO) 8.3 K/uL (4.8-10.8)
[2019-11-15 03:27] LABS: CALCIUM 8.8 mg/dL (8.4-11.0); CREATININE 1.49 mg/dL (0.55-1.30); POTASSIUM 3.4 mmol/L (3.5-5.1)
[2019-11-15 03:33] LABS: ALBUMIN 3.7 g/dL (3.4-4.8); PROTHROMBIN TIME 10.5 SECS (9.5-12.5); TOTAL BILIRUBIN 0.4 mg/dL (0.0-1.0)
[2019-11-15 04:19] VITALS: BP_SYST 112
--- NOTE | 2019-11-15 04:26 | NUR ---
Patient given written and verbal discharge instructions and verbalizes understanding. ER MD Sanchez discussed with patient the results and treatment provided. Patient in stable condition. ID arm band removed. IV catheter removed intact and dressing applied, no active bleeding. Rx of albuterol inhaler given. Patient educated on pain management and to follow up with PMD. Pain Scale 0/10. Opportunity for questions provided and answered. Medication side effect fact sheet provided.
== END 2019-11-15 04:26 | disposition home or self-care (01) ==
LOC: SED 01:32
DX: R07.89 Other chest pain (principal); R06.02 Shortness of breath; Z86.19 Personal history of other infectious and parasitic diseases; Z88.1 Allergy status to other antibiotic agents
CPT/HCPCS: 36415; 71045; 80053; 83880; 84484; 85025; 85379; 85610; 85730; 93005; 94640; 96374; 99285; C9113; J7030; J7612

== ENCOUNTER 2020-05-26 17:37 | Emergency (ER) | payer MEDICAID ==
[~2020-05-26] VITALS: Ht 170.2 cm; Wt 101.2 kg
[~2020-05-26 17:37] MED LIST changes: -BACTRIM DS PO; +LEVO150T8 PO; -LEVO50TA8 PO
[2020-05-26 17:53] VITALS: BP_SYST 142
--- NOTE | 2020-05-26 17:58 | NUR ---
Patient triaged and placed in waiting room. VSS and patient appears in no acute distress at this time. Awaiting available bed, and MD notified of need for MSE.
== END 2020-05-26 19:44 | disposition left against medical advice (07) ==
LOC: SED 17:37
DX: R10.11 Right upper quadrant pain (principal); Z53.21 Procedure and treatment not carried out due to patient leaving prior to being seen by health care provider

== ENCOUNTER 2020-09-24 13:00 | Emergency (ER) | payer MEDICAID ==
[~2020-09-24] VITALS: Ht 165.1 cm; Wt 108.9 kg
[2020-09-24 13:12] VITALS: BP_SYST 138
[2020-09-24] MEDS ORDERED: NACL 0.9% 1,000 ML IV ONE (14:00)
[2020-09-24] MEDS ORDERED: DIPHENHYDRAMINE INJ 50 MG/ML VIAL IVP ONE (14:00)
[2020-09-24] MEDS ORDERED: MORPHINE 2 MG/ML INJ. SYRINGE IVP ONE (14:00)
[2020-09-24 14:09] LABS: BASOPHILS # (AUTO) 0.1 K/uL (0.0-0.2); BASOPHILS % (AUTO) 0.8 % (0.0-2.0); EOSINOPHILS # (AUTO) 0.2 K/uL (0.0-0.4); EOSINOPHILS % (AUTO) 1.8 % (0.0-4.0); HEMATOCRIT 44.9 % (36-48); HEMOGLOBIN 15.2 g/dL (12.0-16.0); LYMPHOCYTES # (AUTO) 1.5 K/uL (1.0-5.5); LYMPHOCYTES % (AUTO) 15.7 % (20.5-51.5); MEAN CORPUSCULAR HEMOGLOBIN 33 pg (27-31); MEAN CORPUSCULAR HGB CONC 34 % (32-36); MEAN CORPUSCULAR VOLUME 98 fL (79.0-98.0); MONOCYTES # (AUTO) 0.5 K/uL (0.0-1.0); MONOCYTES % (AUTO) 4.9 % (1.7-9.3); NEUTROPHILS # (AUTO) 7.3 K/uL (1.8-7.7); NEUTROPHILS % (AUTO) 76.8 % (40.0-70.0); PLATELET COUNT (AUTO) 337 K/uL (130-430); RED BLOOD CELL COUNT(AUTO) 4.57 MIL/uL (4.2-6.2); RED CELL DISTRIBUTION WIDTH 13.1 % (9.0-15.0); WHITE BLOOD COUNT (AUTO) 9.5 K/uL (4.8-10.8)
[2020-09-24 14:22] LABS: CALCIUM 8.5 mg/dL (8.4-11.0); CREATININE 1.27 mg/dL (0.55-1.30); POTASSIUM 3.9 mmol/L (3.5-5.1)
[2020-09-24 14:25] LABS: PROTHROMBIN TIME 9.9 SECS (9.5-12.5)
[2020-09-24 14:28] LABS: ALBUMIN 2.8 g/dL (3.4-4.8); TOTAL BILIRUBIN 0.4 mg/dL (0.0-1.0)
[2020-09-24 14:40] LABS: BILIRUBIN,URINE NEGATIVE (NEGATIVE); CLARITY/URINE CLEAR (CLEAR); GLUCOSE,URINE NEGATIVE (NEGATIVE); KETONES,URINE NEGATIVE (NEGATIVE); LEUKOCYTE ESTERASE ,URINE TRACE (NEGATIVE); NITRITE, URINE NEGATIVE (NEGATIVE); PROTEIN URINE NEGATIVE (NEGATIVE); UROBILINOGEN,URINE 0.2 (0.2-1.0)
[2020-09-24 14:43] LABS: BLOOD, URINE TRACE (NEGATIVE); COLOR,URINE YELLOW (YELLOW)
[2020-09-24 14:47] LABS: BACTERIA,URINE FEW /HPF (None Seen); MUCUS,URINE 1+ /LPF (None Seen); WBC,URINE 20-50 /HPF (0-3)
[2020-09-24 17:25] VITALS: BP_SYST 121
[2020-09-24] MEDS ORDERED: IBUP-1969 PO (17:38)
[2020-09-24] MEDS ORDERED: HYDR-3919 PO (17:38)
== END 2020-09-24 17:25 | disposition home or self-care (01) ==
LOC: SED 13:00
DX: R19.09 Other intra-abdominal and pelvic swelling, mass and lump (principal); F41.9 Anxiety disorder, unspecified; E03.9 Hypothyroidism, unspecified; N28.9 Disorder of kidney and ureter, unspecified; F17.200 Nicotine dependence, unspecified, uncomplicated
CPT/HCPCS: 36415; 74176; 76376; 80053; 81000; 83690; 85025; 85610; 85730; 87086; 96361; 96374; 96375; 99284; J1200; J2270; J7030

== ENCOUNTER 2020-12-24 18:41 | Emergency (ER) | payer MEDICAID, SELFPAY ==
[~2020-12-24] VITALS: Ht 170.2 cm; Wt 99.8 kg
--- NOTE | 2020-12-24 18:49 | NUR ---
Patient to ER bed 8 to gown for evaluation. Side rails up. Report RECEIVED FROM ROSIE ELLIOTT
--- NOTE | 2020-12-24 19:00 | NUR ---
PATIENT ALERT & ORIENTED X4 C/O LOWER ABDOMEN PAIN AND POST OP SURGICAL COMPLICATIONS. PATIENT HAD RECENT HYSTERECTOMY AT [facility] 5 DAYS AGO AND IS SCHEDULED TO SEE DOCTOR ON December. PATIENT STATES HER SURGICAL SITE IS HAS REOPENED AND SUTURES TOWARDS THE END OF SITE HAVE COME OUT. PATIENT APPEARS TO HAVE SEROUS DRAINAGE FROM SITE. PATIENT RATES PAIN AN 8 OUT OF 10. BREATHING EVEN AND UNLABORED, NO SIGNS OF ACUTE DISTRESS. PATIENT IS AFEBRILE, DENIES CHILLS/FEVER, NAUSEA/VOMITING. WILL CONTINUE TO MONITOR.
--- NOTE | 2020-12-24 19:15 | NUR ---
ER Dr. MERRILL at bedside examining patient.
[2020-12-24] MEDS ORDERED: OXYCODONE/ACETAMINOPHEN 5-325 TABLET PO ONE (19:30)
--- NOTE | 2020-12-24 19:35 | NUR ---
PATIENT MEDICATED PER MD ORDERS. PATIENT TOLERATED WELL.
--- NOTE | 2020-12-24 19:40 | NUR ---
Patient transported to radiology via WHEELCHAIR, accompanied by STAFF.
--- NOTE | 2020-12-24 19:53 | NUR ---
Returned from radiology, back to [facility].
--- NOTE | 2020-12-24 19:57 | NUR ---
LAB AT BEDSIDE FOR BLOOD DRAW.
[2020-12-24 20:21] LABS: BASOPHILS # (AUTO) 0.1 K/uL (0.0-0.2); BASOPHILS % (AUTO) 1.4 % (0.0-2.0); EOSINOPHILS # (AUTO) 0.4 K/uL (0.0-0.4); EOSINOPHILS % (AUTO) 5.4 % (0.0-4.0); HEMATOCRIT 41.1 % (36-48); HEMOGLOBIN 13.9 g/dL (12.0-16.0); LYMPHOCYTES # (AUTO) 2.6 K/uL (1.0-5.5); LYMPHOCYTES % (AUTO) 35.6 % (20.5-51.5); MEAN CORPUSCULAR HEMOGLOBIN 34 pg (27-31); MEAN CORPUSCULAR HGB CONC 34 % (32-36); MEAN CORPUSCULAR VOLUME 101 fL (79.0-98.0); MONOCYTES # (AUTO) 0.5 K/uL (0.0-1.0); MONOCYTES % (AUTO) 7.3 % (1.7-9.3); NEUTROPHILS # (AUTO) 3.7 K/uL (1.8-7.7); NEUTROPHILS % (AUTO) 50.3 % (40.0-70.0); PLATELET COUNT (AUTO) 273 K/uL (130-430); RED BLOOD CELL COUNT(AUTO) 4.06 MIL/uL (4.2-6.2); RED CELL DISTRIBUTION WIDTH 14.6 % (9.0-15.0); WHITE BLOOD COUNT (AUTO) 7.4 K/uL (4.8-10.8)
--- NOTE | 2020-12-24 20:35 | NUR ---
PATIENT REPORTS PAIN DECREASED TO A 4 OUT OF 10 AFTER RECEIVING PAIN MEDICATION.
[2020-12-24 20:48] LABS: CALCIUM 8.4 mg/dL (8.4-11.0); CREATININE 0.97 mg/dL (0.55-1.30); POTASSIUM 4.3 mmol/L (3.5-5.1)
--- NOTE | 2020-12-24 20:53 | NUR ---
PATIENT AMBULATED TO RESTROOM WITH STEADY GAIT.
[2020-12-24 21:02] LABS: TOTAL BILIRUBIN 0.3 mg/dL (0.0-1.0)
[2020-12-24] MEDS ORDERED: HYDR-3921 PO (21:11)
[2020-12-24 21:25] VITALS: BP_SYST 112
--- NOTE | 2020-12-24 21:25 | NUR ---
Patient given written and verbal discharge instructions and verbalizes understanding. ER MD discussed with patient the results and treatment provided. Patient in stable condition. ID arm band removed. Rx of [place] given. Patient educated on pain management and to follow up with PMD. Pain Scale 0/10 Opportunity for questions provided and answered. Medication side effect fact sheet provided.
== END 2020-12-24 21:25 | disposition home or self-care (01) ==
LOC: SED 18:41
DX: T81.31XA Disruption of external operation (surgical) wound, not elsewhere classified, initial encounter (principal); G89.18 Other acute postprocedural pain; F41.9 Anxiety disorder, unspecified; Z90.710 Acquired absence of both cervix and uterus; Z79.899 Other long term (current) drug therapy
CPT/HCPCS: 36415; 76376; 80053; 85025; 87040-TC; 99284

== ENCOUNTER 2020-12-26 13:46 | Emergency (ER) | payer MEDICAID ==
[~2020-12-26] VITALS: Ht 170.2 cm; Wt 99.8 kg
[~2020-12-26 13:46] MED LIST changes: +HYDR-3921 PO
--- NOTE | 2020-12-26 13:57 | NUR ---
Patient to ER bed 07 to gown for evaluation. Side rails up.
--- NOTE | 2020-12-26 14:00 | NUR ---
Pt walked in to ER with c/o abdominal pain, s/p hysterectomy on 12/18/20, wound is starting to open. Pt was seen in ER 3 days ago and given instructions on how to dress wound. Pt reports it's opening more and causing pain. No fever at this time, v/s stable, no acute distress noted.
--- NOTE | 2020-12-26 14:05 | NUR ---
ER Dr. Hanna at bedside examining patient.
[2020-12-26 14:07] VITALS: BP_SYST 142
[2020-12-26 14:52] LABS: BASOPHILS # (AUTO) 0.1 K/uL (0.0-0.2); BASOPHILS % (AUTO) 1.1 % (0.0-2.0); EOSINOPHILS # (AUTO) 0.4 K/uL (0.0-0.4); EOSINOPHILS % (AUTO) 4.5 % (0.0-4.0); HEMATOCRIT 42.1 % (36-48); HEMOGLOBIN 14.3 g/dL (12.0-16.0); LYMPHOCYTES # (AUTO) 2.7 K/uL (1.0-5.5); LYMPHOCYTES % (AUTO) 32.3 % (20.5-51.5); MEAN CORPUSCULAR HEMOGLOBIN 35 pg (27-31); MEAN CORPUSCULAR HGB CONC 34 % (32-36); MEAN CORPUSCULAR VOLUME 102 fL (79.0-98.0); MONOCYTES # (AUTO) 0.6 K/uL (0.0-1.0); MONOCYTES % (AUTO) 6.6 % (1.7-9.3); NEUTROPHILS # (AUTO) 4.7 K/uL (1.8-7.7); NEUTROPHILS % (AUTO) 55.5 % (40.0-70.0); PLATELET COUNT (AUTO) 341 K/uL (130-430); RED BLOOD CELL COUNT(AUTO) 4.12 MIL/uL (4.2-6.2); RED CELL DISTRIBUTION WIDTH 14.2 % (9.0-15.0); WHITE BLOOD COUNT (AUTO) 8.5 K/uL (4.8-10.8)
[2020-12-26 14:55] LABS: CALCIUM 8.7 mg/dL (8.4-11.0); CREATININE 0.99 mg/dL (0.55-1.30); POTASSIUM 4.1 mmol/L (3.5-5.1)
[2020-12-26 15:01] LABS: ALBUMIN 3.3 g/dL (3.4-4.8); TOTAL BILIRUBIN 0.4 mg/dL (0.0-1.0)
[2020-12-26 15:03] LABS: PROTHROMBIN TIME 9.8 SECS (9.5-12.5)
[2020-12-26 15:04] LABS: C-REACTIVE PROTEIN QUANT 0.9 mg/dL (0-0.5)
--- NOTE | 2020-12-26 15:32 | NUR ---
Pt eloped without being discharged by Dr. Jacques DIAZ aware.
[2020-12-26 15:34] VITALS: BP_SYST 142
== END 2020-12-26 15:32 | disposition left against medical advice (07) ==
LOC: SED 13:46
DX: T81.31XA Disruption of external operation (surgical) wound, not elsewhere classified, initial encounter (principal)
CPT/HCPCS: 36415; 80053; 83605; 85025; 85610-TC; 85730-TC; 86140; 99283

== ENCOUNTER 2021-10-31 16:07 | Emergency (ER) | payer MEDICAID ==
[~2021-10-31] VITALS: Ht 170.2 cm; Wt 97.5 kg
[2021-10-31] MEDS ORDERED: NACL 0.9% 1,000 ML IV ONE (16:30)
[2021-10-31] MEDS ORDERED: ONDANSETRON HCL 4 MG/2 ML VIAL IVP ONE (16:30)
[2021-10-31] MEDS ORDERED: MAGNESIUM SULFATE 50 ML IV ONE (16:30)
[2021-10-31] MEDS ORDERED: methylPREDNISolone SOD SUCC/PF 62.5 MG/ML VIAL IVP ONE (16:30)
[2021-10-31 16:45] VITALS: BP_SYST 151
--- NOTE | 2021-10-31 16:45 | NUR ---
Patient to ER bed 3 for evaluation. Side rails up. Report given to Jose Martin VELEZ.
--- NOTE | 2021-10-31 17:00 | NUR ---
ER at bedside examining patient.
[2021-10-31 17:07] LABS: ANION GAP 9 (5-15); CHLORIDE 105 mmol/L (98-107); CREATININE 1.11 mg/dL (0.55-1.30); GLUCOSE 107 mg/dL (70-99); POTASSIUM 3.7 mmol/L (3.5-5.1); SODIUM SERUM 138 mmol/L (136-145); UREA NITROGEN, BLOOD 11 mg/dL (8-21)
--- NOTE | 2021-10-31 17:09 | NUR ---
# 20 gauge angiocath placed to right forearm. Use of asceptic technique. Opsite placed over site. Blood return noted. Flushed with 10 cc of normal saline. No evidence of infiltration noted. Patient tolerated well.
[2021-10-31 17:11] LABS: GFR AFRICAN AMERICAN 65 mL/min (>90)
--- NOTE | 2021-10-31 17:11 | NUR ---
Pt refused ABG to be done. made aware.
[2021-10-31 17:14] LABS: BASOPHILS # (AUTO) 0.1 K/uL (0.0-0.2); EOSINOPHILS # (AUTO) 0.3 K/uL (0.0-0.4); EOSINOPHILS % (AUTO) 3.4 % (0.0-4.0); HEMATOCRIT 45.5 % (36-48); HEMOGLOBIN 15.8 g/dL (12.0-16.0); LYMPHOCYTES # (AUTO) 2.9 K/uL (1.0-5.5); LYMPHOCYTES % (AUTO) 38.8 % (20.5-51.5); MEAN CORPUSCULAR HEMOGLOBIN 34 pg (27-31); MEAN CORPUSCULAR HGB CONC 35 % (32-36); MEAN CORPUSCULAR VOLUME 97 fL (79.0-98.0); MONOCYTES # (AUTO) 0.4 K/uL (0.0-1.0); MONOCYTES % (AUTO) 5.3 % (1.7-9.3); NEUTROPHILS # (AUTO) 3.9 K/uL (1.8-7.7); NEUTROPHILS % (AUTO) 51.5 % (40.0-70.0); PLATELET COUNT (AUTO) 232 K/uL (130-430); RED CELL DISTRIBUTION WIDTH 15.3 % (9.0-15.0); WHITE BLOOD COUNT (AUTO) 7.6 K/uL (4.8-10.8)
[2021-10-31 17:16] LABS: ALANINE AMINOTRANSFERASE 63 U/L (12-78); ALBUMIN 3.5 g/dL (3.4-4.8); ASPARTATE AMINOTRANSFERASE 47 U/L (10-37); TOTAL BILIRUBIN 0.3 mg/dL (0.0-1.0)
--- NOTE | 2021-10-31 18:41 | NUR ---
Patient given written and verbal discharge instructions and verbalizes understanding. ER MD discussed with patient the results and treatment provided. Patient in stable condition. ID arm band removed. . Patient educated on pain management and to follow up with PMD. Pain Scale0/10 . Opportunity for questions provided and answered. Medication side effect fact sheet provided.
[2021-10-31 19:56] VITALS: BP_SYST 135
== END 2021-10-31 17:11 | disposition home or self-care (01) ==
LOC: SED 16:07
DX: J44.1 Chronic obstructive pulmonary disease with (acute) exacerbation (principal); F17.210 Nicotine dependence, cigarettes, uncomplicated; Z71.6 Tobacco abuse counseling
CPT/HCPCS: 36415; 71045; 80053; 83880; 84484; 85025; 85379; 87040; 96365; 96366; 96375; 99284; J2405; J2930; J3475